=== PATIENT | male | born 1960 | race Caucasian/White ===

== ENCOUNTER → 2018-06-16 | Outpatient (CLI) | payer OTHER ==
[~2018-06-16] MED LIST: GADOBUTROL 10 ML VIAL IVP ONE
== END ==
LOC: FIMAGING 06:42
PROVIDERS: ATTEND Internal Medicine
DX: K11.8 Other diseases of salivary glands (principal); Q28.2 Arteriovenous malformation of cerebral vessels; L56.8 Other specified acute skin changes due to ultraviolet radiation; I10 Essential (primary) hypertension; Z82.49 Family history of ischemic heart disease and other diseases of the circulatory system
CPT/HCPCS: A9585